=== PATIENT | female | born 1995 | race Two or more races ===

== ENCOUNTER 2020-11-17 19:33 | Emergency (ER) | payer OTHER ==
[~2020-11-17] VITALS: Ht 152.4 cm; Wt 65.8 kg
[2020-11-17] MEDS ORDERED: NORFLEX100MG PO (20:43)
[2020-11-17] MEDS ORDERED: DICLOFENAC SODI75 MG PO (20:43)
== END 2020-11-17 20:45 | disposition home or self-care (01) ==
LOC: ER 19:33
DX: S13.4XXA Sprain of ligaments of cervical spine, initial encounter (principal); S23.3XXA Sprain of ligaments of thoracic spine, initial encounter; S33.5XXA Sprain of ligaments of lumbar spine, initial encounter; V49.88XA Car occupant (driver) (passenger) injured in other specified transport accidents, initial encounter; Y93.89 Activity, other specified; Y92.89 Other specified places as the place of occurrence of the external cause; Y99.8 Other external cause status

== ENCOUNTER 2023-12-06 10:37 | Emergency (ER) | payer OTHER ==
[~2023-12-06] VITALS: Ht 152.4 cm; Wt 68.0 kg
[~2023-12-06 10:37] MED LIST: DICLOFENAC SODI75 MG PO; NORFLEX100MG PO
[2023-12-06] MEDS ORDERED: PRENA1 TRUE CO1 EACH PO (11:20)
[2023-12-06] MEDS ORDERED: FAMOTIDINE/PF 20 MG/2 ML VIAL IV ONE (14:45)
[2023-12-06 14:57] LABS: HEMATOCRIT 39.3 % (36.0-45.00); HEMOGLOBIN 13.2 g/dL (12.0-15.00); MEAN CELL VOLUME 86.3 fL (80.00-100.00); MEAN CORPUSCULAR HEMOGLOBIN 29.1 pg (27.00-32.0); MEAN CORPUSCULAR HGB CONC 33.7 g/dl (32.0-36.0); PLATELET COUNT 483 K/uL (150-450); RED BLOOD COUNT 4.55 M/uL (4.00-6.00); RED CELL DISTRIBUTION WIDTH 13.6 % (11.5-14.5)
[2023-12-06 15:18] LABS: INR 1.14; PARTIAL THROMBOPLASTIN TIME 29.1 SECONDS (22.0-34.0); PROTHROMBIN TIME 11.9 SECONDS (9.0-11.5)
[2023-12-06 15:35] LABS: PH,URINE 5.5 (5.0-8.0); URINE APPEARANCE Cloudy; URINE BILIRRUBIN Negative (NEGATIVE); URINE BLOOD Large; URINE COLOR Yellow; URINE GLUCOSE Negative (NEGATIVE); URINE LEUKOCYTE Trace; URINE NITRATE Negative; URINE PROTEIN Negative (NEGATIVE)
[2023-12-06 15:37] LABS: CALCIUM 9.2 mg/dL (8.5-10.1); CREATININE SERUM 0.68 mg/dL (0.55-1.02); GFR 103.79; POTASSIUM 3.63 mEq/L (3.5-5.1)
[2023-12-06 15:38] LABS: URINE BACTERIA 452.3 uL (0.0-1933); URINE EPITHELIAL CELLS 33.9 uL (0.0-38.8); URINE RBC 2256.8 uL (0.0-20.8); URINE WBC 31.6 uL (0.0-23.2)
[2023-12-06] MEDS ORDERED: PEPCID AC20 MG PO (17:07)
[2023-12-06] MEDS ORDERED: PROMETRIUM200 MG PO (17:07)
[2023-12-06] MEDS ORDERED: RHOGAM ULTR1500 UNIT IM (17:07)
== END 2023-12-06 17:56 ==
LOC: ER 10:37
PROVIDERS: Nurse Practitioner Family
DX: O20.9 Hemorrhage in early pregnancy, unspecified (principal); Z3A.01 Less than 8 weeks gestation of pregnancy

== ENCOUNTER 2023-12-06 22:01 | Emergency (ER) | payer OTHER ==
[~2023-12-06] VITALS: Ht 152.4 cm; Wt 68.0 kg
[~2023-12-06 22:01] MED LIST changes: +PEPCID AC20 MG PO; +PRENA1 TRUE CO1 EACH PO; +PROMETRIUM200 MG PO; +RHOGAM ULTR1500 UNIT IM
[2023-12-07] MEDS ORDERED: KETOROLAC TROMETHAMINE 60 MG VIAL IM STA (00:20)
[2023-12-07] MEDS ORDERED: MEPERIDINE HCL/PF 25 MG/ML VIAL IM STA (00:20)
[2023-12-07] MEDS ORDERED: PROMETHAZINE HCL 25 MG/ML AMPUL IM STA (00:21)
[2023-12-07 00:42] LABS: HEMATOCRIT 36.2 % (36.0-45.00); HEMOGLOBIN 12.3 g/dL (12.0-15.00); MEAN CELL VOLUME 86.3 fL (80.00-100.00); MEAN CORPUSCULAR HEMOGLOBIN 29.3 pg (27.00-32.0); MEAN CORPUSCULAR HGB CONC 33.9 g/dl (32.0-36.0); PLATELET COUNT 445 K/uL (150-450); RED CELL DISTRIBUTION WIDTH 13.6 % (11.5-14.5)
== END 2023-12-07 01:57 | disposition home or self-care (01) ==
LOC: ER 22:01
DX: O03.9 Complete or unspecified spontaneous abortion without complication (principal)

== ENCOUNTER 2024-03-21 01:01 | Emergency (ER) | payer OTHER ==
[~2024-03-21] VITALS: Ht 152.4 cm; Wt 74.8 kg
[2024-03-21 02:25] LABS: MEAN CORPUSCULAR HEMOGLOBIN 29.8 pg (27.00-32.0); MEAN CORPUSCULAR HGB CONC 34.2 g/dl (32.0-36.0); PLATELET COUNT 432 K/uL (150-450); RED BLOOD COUNT 4.02 M/uL (4.00-6.00); RED CELL DISTRIBUTION WIDTH 13.8 % (11.5-14.5)
[2024-03-21 02:56] LABS: PH,URINE 6.5 (5.0-8.0); URINE APPEARANCE Clear; URINE BILIRRUBIN Negative (NEGATIVE); URINE BLOOD Negative; URINE COLOR Yellow; URINE GLUCOSE Negative (NEGATIVE); URINE LEUKOCYTE Negative; URINE NITRATE Negative; URINE PROTEIN Negative (NEGATIVE)
[2024-03-21 03:00] LABS: URINE BACTERIA 283.4 uL (0.0-1933); URINE EPITHELIAL CELLS 15.4 uL (0.0-38.8); URINE RBC 9.7 uL (0.0-20.8); URINE WBC 4.9 uL (0.0-23.2)
== END 2024-03-21 03:50 | disposition home or self-care (01) ==
LOC: ER 01:02
PROVIDERS: General Practice
DX: O20.9 Hemorrhage in early pregnancy, unspecified (principal); Z3A.01 Less than 8 weeks gestation of pregnancy

== ENCOUNTER 2024-10-08 16:16 | Outpatient (CLI) | payer OTHER ==
[2024-10-08 16:36] VITALS: BP 116/72
== END 2024-10-08 17:09 | disposition home or self-care (01) ==
LOC: NST 16:16
PROVIDERS: ATTEND Obstetrics & Gynecology
DX: Z34.83 Encounter for supervision of other normal pregnancy, third trimester (principal)

== ENCOUNTER 2024-11-12 13:49 | Outpatient (CLI) | payer OTHER ==
[2024-11-12] MEDS ORDERED: PRENATAL TABLE1 EAC1 PO (16:42)
== END 2024-11-12 15:14 | disposition still patient (30) ==
LOC: NST 13:49
PROVIDERS: ATTEND Obstetrics & Gynecology
DX: Z34.83 Encounter for supervision of other normal pregnancy, third trimester (principal)

== ENCOUNTER 2024-11-12 14:30 | Inpatient (IN) | payer OTHER ==
[~2024-11-12] VITALS: Ht 152.4 cm; Wt 2.7 kg
[2024-11-12 15:10] VITALS: BP 102/68; BP 103/68
[2024-11-12] MEDS ORDERED: RINGERS SOLUTION,LACTATED 1,000 ML IV SCH (16:00)
[2024-11-12 16:07] LABS: HEMATOCRIT 32.5 % (36.0-45.00); HEMOGLOBIN 10.9 g/dL (12.0-15.00); MEAN CELL VOLUME 84.1 fL (80.00-100.00); MEAN CORPUSCULAR HEMOGLOBIN 28.3 pg (27.00-32.0); MEAN CORPUSCULAR HGB CONC 33.7 g/dl (32.0-36.0); PLATELET COUNT 423 K/uL (150-450); RED BLOOD COUNT 3.86 M/uL (4.00-6.00); RED CELL DISTRIBUTION WIDTH 13.8 % (11.5-14.5)
[2024-11-12 16:29] LABS: INR 1.02; PARTIAL THROMBOPLASTIN TIME 27.1 SECONDS (22.0-34.0); PROTHROMBIN TIME 11.1 SECONDS (9.0-11.5)
[2024-11-12 16:41] LABS: ALBUMIN 2.4 gm/dL (3.4-5.0); BILIRUBIN TOTAL 0.28 mg/dL (0.3-1.2); CALCIUM 8.9 mg/dL (8.5-10.1); CREATININE SERUM 0.43 mg/dL (0.55-1.02); GFR 176.14; GLOBULINA 3.8 G/DL (2.4-3.5); POTASSIUM 4.07 mEq/L (3.5-5.1); TOTAL PROTEIN 6.2 gm/dL (6.4-8.2)
[2024-11-12] MEDS ORDERED: PRENATAL TABLE1 EAC1 PO (16:42)
[2024-11-12 20:00] VITALS: BP 113/70
[2024-11-12 23:36] VITALS: BP 102/60
[2024-11-13] MEDS ORDERED: MAGNESIUM SULFATE IN WATER 500 ML IV SCH (00:45)
[2024-11-13 03:41] VITALS: BP 106/69
[2024-11-13 08:02] VITALS: BP 107/66; O2SAT 100
[2024-11-13 11:25] VITALS: BP 110/65
[2024-11-13] MEDS ORDERED: PNV,CALCIUM 72/IRON/FOLIC ACID 1 TAB TABLET PO ONE (11:45)
[2024-11-13 15:10] VITALS: BP 111/65
[2024-11-13 19:01] VITALS: BP 112/61
[2024-11-13 23:14] VITALS: BP 115/74; O2SAT 98
[2024-11-14 03:32] VITALS: BP 106/60
[2024-11-14 07:11] VITALS: BP 114/71
[2024-11-14] MEDS ORDERED: OXYTOCIN 20 UNITS/500ML RL PIGGYBAG IV SCH (07:15)
[2024-11-14 11:14] VITALS: BP 113/76
[2024-11-14 15:15] VITALS: BP 115/59
[2024-11-14 19:19] VITALS: BP 125/66
[2024-11-14 23:30] VITALS: BP 114/62
[2024-11-15 03:54] VITALS: BP 117/69
[2024-11-15 07:42] VITALS: BP 121/69
[2024-11-15] MEDS ORDERED: OXYTOCIN 500 ML IV ONE (08:15)
[2024-11-15] MEDS ORDERED: MORPHINE SULFATE 4 MG/ML CARTRIDGE IV STA ×2 (08:25→10:15)
[2024-11-15 09:03] VITALS: BP 127/73
[2024-11-15] MEDS ORDERED: CEFAZOLIN SODIUM 1,000 MG VIAL IV ONE (11:15)
[2024-11-15] MEDS ORDERED: TERBUTALINE SULFATE 1 MG/ML AMPUL IV ONE (11:15)
[2024-11-15] MEDS ORDERED: METOCLOPRAMIDE HCL 5 MG/ML VIAL IV ONE (11:30)
[2024-11-15] MEDS ORDERED: MORPHINE SULFATE 4 MG/ML CARTRIDGE IV PRN (12:15)
[2024-11-15] MEDS ORDERED: KETOROLAC TROMETHAMINE 30 MG VIAL IV NR (12:15)
[2024-11-15] MEDS ORDERED: OXYTOCIN 1,000 ML IV SCH (12:15)
[2024-11-15] MEDS ORDERED: ONDANSETRON HCL 4 MG in 0.9 % SODIUM CHLORIDE 50 ML IV PRN (12:30)
[2024-11-15] MEDS ORDERED: ERYTHROMYCIN BASE OPHT 1GM EACH TUBE OP ONE (13:00)
[2024-11-15] MEDS ORDERED: OXYTOCIN 10 UNITS/ML VIAL IV ONE (13:00)
[2024-11-15] MEDS ORDERED: MORPHINE SULFATE 4 MG/ML VIAL IV ONE ×2 (13:10→14:10)
[2024-11-15] MEDS ORDERED: KETOROLAC TROMETHAMINE 30 MG VIAL IV ONE (16:25)
[2024-11-15 17:13] VITALS: BP 122/76
[2024-11-15 20:45] VITALS: BP 105/63
[2024-11-16] VITALS: BP 102/67
[2024-11-16] MEDS ORDERED: MORPHINE SULFATE 4 MG/ML CARTRIDGE IV PRN (08:00)
[2024-11-16] MEDS ORDERED: FF) RHO(D) IMMUNE GLOBULIN (POM) IM ONE (08:15)
[2024-11-16] MEDS ORDERED: IBUprofen 400 MG TABLET PO PRN ×2 (08:45→09:00)
[2024-11-16 08:50] VITALS: BP 117/76
[2024-11-16 13:50] VITALS: BP 115/73
[2024-11-16 15:50] VITALS: BP 130/70
[2024-11-17] VITALS: BP 112/78
[2024-11-17] MEDS ORDERED: OxyCODONE HCL 5 MG TABLET (ROXICODONE) PO PRN (06:00)
[2024-11-17 08:48] VITALS: BP 118/71
[2024-11-17] MEDS ORDERED: IBUprofen 400 MG TABLET PO SCH (09:00)
== END 2024-11-17 14:01 | disposition home or self-care (01) | DRG 788 ==
LOC: LDR 15:18 → O/R 11-15 14:22 → OB/GYN 11-15 14:45
PROVIDERS: Obstetrics & Gynecology; ADMIT Obstetrics & Gynecology Maternal & Fetal Medicine; ATTEND Obstetrics & Gynecology Maternal & Fetal Medicine
PROC: 4A1HXCZ Monitoring of Products of Conception, Cardiac Rate, External Approach (ICD-10-PCS; 2024-11-12)
PROC: 10D00Z1 Extraction of Products of Conception, Low, Open Approach (ICD-10-PCS; principal; 2024-11-15 12:30)
DX: O36.8130 Decreased fetal movements, third trimester, not applicable or unspecified (principal); Z3A.39 39 weeks gestation of pregnancy; Z37.0 Single live birth